=== PATIENT | female | born 1960 | race Caucasian/White ===

== ENCOUNTER 2019-01-14 15:43 | Emergency (ER) | payer OTHER ==
[~2019-01-14] VITALS: Ht 162.5 cm; Wt 79.8 kg
[~2019-01-14 15:43] MED LIST: ACYCLOVIR800 MG PO; ANAPROX DS550 MG PO; ATIVAN0.5 MG PO; DARVOCET N 1001 TAB PO; DIFLUCAN100 MG PO; FLAGYL500 MG PO; MONISTAT 3200 MG VG; TRAMADOL HCL50 MG PO
[2019-01-14 16:27] VITALS: BP 125/78
[2019-01-14] MEDS ORDERED: ZOFRAN4 MG PO (17:48)
[2019-01-14] MEDS ORDERED: MOTION RELIEF25 M2 PO (17:48)
== END 2019-01-14 17:55 | disposition home or self-care (01) ==
LOC: ED 15:43
DX: H83.09 Labyrinthitis, unspecified ear (principal); R51 Headache; R42 Dizziness and giddiness; R11.2 Nausea with vomiting, unspecified; Z86.73 Personal history of transient ischemic attack (TIA), and cerebral infarction without residual deficits

== ENCOUNTER → 2019-03-02 | Outpatient (CLI) | payer OTHER ==
[~2019-03-02] MED LIST changes: +MOTION RELIEF25 M2 PO; +ZOFRAN4 MG PO
--- NOTE | ~2019-03-02 | EKG ---
[place], [place] ELECTROCARDIOGRAM REPORT NAME: JOSIAH NOLAND UNIT #: [id number] ROOM: DOCTOR: EPIPHANY DRAFT REPORT BIRTHDATE: [birth year] [facility] Test Date: 2019-03-02 Test Time: 11:13:54 Pat Name: JOSIAH NOLAND Department: Room: OP Gender: F Assessment Counselor: : 1960 Requested By: TERRENCE TELLEZ Order Number: [id number] Reading MD: Colton Novoa MD Measurements Intervals [place] Rate: 96 P: 64 [place]: 152 QRS: 48 QRSD: 82 T: 3 QT: 357 QTc: 452 Interpretive Statements Sinus rhythm Electronically Signed On 03-03-2019 5:58:44 PDT by Colton Novoa MD CM:EKGRPT:ELECTROCARDIOGRAM REPORT [id number] TERRENCE TELLEZ EPIPHANY DRAFT REPORT TERRENCE TELLEZ
== END | disposition home or self-care (01) ==
LOC: LAB 10:31
DX: Z12.39 Encounter for other screening for malignant neoplasm of breast (principal); E03.9 Hypothyroidism, unspecified; I10 Essential (primary) hypertension; F32.9 Major depressive disorder, single episode, unspecified; K21.9 Gastro-esophageal reflux disease without esophagitis; G43.909 Migraine, unspecified, not intractable, without status migrainosus

== ENCOUNTER → 2019-03-29 | Outpatient (CLI) | payer OTHER | END | disposition home or self-care (01) | LOC: LAB 10:20 → EDSTATUS 03-30 15:11 → LAB 03-30 15:24 | DX: Z03.89 Encounter for observation for other suspected diseases and conditions ruled out (principal); Z83.79 Family history of other diseases of the digestive system ==

== ENCOUNTER → 2019-05-03 | Outpatient (CLI) | payer OTHER ==
[~2019-05-03] MED LIST changes: +CYCLOBENZAPRINE5 M3 PO
== END | disposition home or self-care (01) ==
LOC: RAD 11:00
DX: Z01.419 Encounter for gynecological examination (general) (routine) without abnormal findings (principal); M51.36 Other intervertebral disc degeneration, lumbar region; M81.0 Age-related osteoporosis without current pathological fracture; N95.9 Unspecified menopausal and perimenopausal disorder; I10 Essential (primary) hypertension; Z78.0 Asymptomatic menopausal state

== ENCOUNTER 2019-05-14 16:59 | Emergency (ER) | payer OTHER ==
[~2019-05-14] VITALS: Ht 157.4 cm; Wt 80.7 kg
[2019-05-14 16:59] VITALS: BP 147/88
[~2019-05-14 16:59] MED LIST changes: -CYCLOBENZAPRINE5 M3 PO
[2019-05-14] MEDS ORDERED: CYCLOBENZAPRINE5 M3 PO (19:48)
== END 2019-05-14 19:42 | disposition home or self-care (01) ==
LOC: ED 16:59
DX: S16.1XXA Strain of muscle, fascia and tendon at neck level, initial encounter (principal); R42 Dizziness and giddiness; R51 Headache; R07.89 Other chest pain; Z90.49 Acquired absence of other specified parts of digestive tract; V43.52XA Car driver injured in collision with other type car in traffic accident, initial encounter; Y93.I9 Activity, other involving external motion; Y92.488 Other paved roadways as the place of occurrence of the external cause; Y99.8 Other external cause status

== ENCOUNTER → 2020-03-27 | Outpatient (CLI) | payer OTHER ==
[~2020-03-27] MED LIST changes: +CYCLOBENZAPRINE5 M3 PO
[2020-03-27 07:30] LABS: HEMATOCRIT 37.5 % (37.0-47.0); MEAN CELL VOLUME 94.5 fl (81.0-99.0); MEAN CORPUSCULAR HGB 31.2 pg (27.0-31.0); MEAN CORPUSCULAR HGB CONC 33.1 g/dl (33.0-37.0); MEAN PLATELET VOLUME 10.4 fl (9.6-12.3); RED BLOOD COUNT 3.97 10*6/uL (4.10-5.10); RED CELL DISTRI WIDTH 12.3 % (0-14.5)
[2020-03-27 08:01] LABS: ALBUMIN 3.1 gm/dl (3.1-4.5); ALKALINE PHOSPHATASE 84 U/L (45-117); BUN 10 mg/dl (7-24); CHLORIDE 109 mmol/L (98-107); CHOLESTEROL 164 mg/dL (<200); CREATININE 0.91 mg/dL (0.55-1.02); HDL CHOLESTEROL 47 mg/dl (40-60); LDL CHOLESTEROL 99 mg/dL (9-159); POTASSIUM 4.1 mmol/L (3.5-5.1); SGOT/AST 29 IU/L (3-35); SGPT/ALT 38 U/L (12-78); SODIUM 140 mmol/L (136-145); TOTAL PROTEIN 7.4 gm/dL (6.4-8.2); TRIGLYCERIDES 89 mg/dl (<150); VLDL CHOLESTEROL 18 mg/dL (6-40)
== END | disposition home or self-care (01) ==
LOC: LAB 07:00
PROVIDERS: Internal Medicine
DX: I10 Essential (primary) hypertension (principal); E03.9 Hypothyroidism, unspecified; E78.2 Mixed hyperlipidemia; Z86.73 Personal history of transient ischemic attack (TIA), and cerebral infarction without residual deficits

== ENCOUNTER → 2021-01-24 | Outpatient (CLI) | payer OTHER ==
[2021-01-24 10:05] LABS: BASO # 0.1 10*3/uL (0.0-0.1); BASO % 0.7 % (0.0-1.0); EOS # 0.3 10*3/uL (0.0-0.4); HEMATOCRIT 41.3 % (37.0-47.0); LYMPH # 2.5 10*3/uL (1.3-4.4); LYMPH % 35.9 % (27.0-41.0); MEAN CELL VOLUME 97.9 fl (81.0-99.0); MEAN CORPUSCULAR HGB 31.8 pg (27.0-31.0); MEAN CORPUSCULAR HGB CONC 32.4 g/dl (33.0-37.0); MEAN PLATELET VOLUME 10.4 fl (9.6-12.3); MONO # 0.9 10*3/uL (0.1-1.0); NEUT # 3.1 10*3/uL (2.3-7.9); NEUT % 45.3 % (47.0-73.0); PLATELET COUNT AUTOMATED 321 10*3/uL (130-400); RED BLOOD COUNT 4.22 10*6/uL (4.10-5.10); RED CELL DISTRI WIDTH 12.3 % (0-14.5); WHITE BLOOD COUNT 6.8 10*3/uL (4.8-10.8)
[2021-01-24 10:40] LABS: ALBUMIN 3.3 gm/dl (3.1-4.5); ALKALINE PHOSPHATASE 105 U/L (45-117); BUN 9 mg/dl (7-24); CHLORIDE 107 mmol/L (98-107); CHOLESTEROL 213 mg/dL (<200); CREATININE 0.94 mg/dL (0.55-1.02); LDL CHOLESTEROL 132 mg/dL (9-159); POTASSIUM 3.9 mmol/L (3.5-5.1); SGOT/AST 62 IU/L (3-35); SGPT/ALT 77 U/L (12-78); SODIUM 135 mmol/L (136-145); TOTAL PROTEIN 8.4 gm/dL (6.4-8.2); TRIGLYCERIDES 133 mg/dl (<150)
== END | disposition home or self-care (01) ==
LOC: LAB 09:30
PROVIDERS: Physical Therapist; ATTEND Family Medicine
DX: I10 Essential (primary) hypertension (principal); E66.09 Other obesity due to excess calories; Z86.39 Personal history of other endocrine, nutritional and metabolic disease

== ENCOUNTER → 2021-09-17 | Outpatient (CLI) | payer OTHER | END | disposition home or self-care (01) | LOC: MRI 08-31 13:00 | PROVIDERS: ATTEND Psychiatry & Neurology Neurology | DX: G93.5 Compression of brain (principal); R55 Syncope and collapse ==

== ENCOUNTER → 2022-01-18 | Outpatient (CLI) | payer OTHER | END | disposition home or self-care (01) | LOC: US 15:06 | PROVIDERS: ATTEND Nurse Practitioner Women's Health | DX: N85.8 Other specified noninflammatory disorders of uterus (principal); R10.2 Pelvic and perineal pain ==

== ENCOUNTER → 2022-02-26 | Outpatient (CLI) | payer OTHER ==
[2022-02-26 12:03] LABS: BASO % 0.4 % (0.0-1.0); EOS # 0.4 10*3/uL (0.0-0.4); EOS % 4.7 % (1.0-4.0); HEMATOCRIT 39.3 % (37.0-47.0); LYMPH # 2.1 10*3/uL (1.3-4.4); LYMPH % 26.7 % (27.0-41.0); MEAN CELL VOLUME 96.1 fl (81.0-99.0); MEAN CORPUSCULAR HGB CONC 33.3 g/dl (33.0-37.0); MEAN PLATELET VOLUME 10.7 fl (9.6-12.3); MONO # 0.7 10*3/uL (0.1-1.0); MONO % 9.3 % (3.0-9.0); NEUT # 4.7 10*3/uL (2.3-7.9); NEUT % 58.6 % (47.0-73.0); PLATELET COUNT AUTOMATED 269 10*3/uL (130-400); RED BLOOD COUNT 4.09 10*6/uL (4.10-5.10); RED CELL DISTRI WIDTH 12.3 % (0-14.5); WHITE BLOOD COUNT 7.9 10*3/uL (4.8-10.8)
[2022-02-26 13:39] LABS: BUN 13 mg/dl (7-24); CHLORIDE 113 mmol/L (98-107); CHOLESTEROL 172 mg/dL (<200); CREATININE 0.89 mg/dL (0.55-1.02); LDL CHOLESTEROL 106 mg/dL (9-159); POTASSIUM 4.1 mmol/L (3.5-5.1); SGOT/AST 36 IU/L (3-35); SGPT/ALT 41 U/L (12-78); SODIUM 142 mmol/L (136-145); TRIGLYCERIDES 84 mg/dl (<150)
[2022-02-26 13:46] LABS: ALKALINE PHOSPHATASE 94 U/L (45-117); TOTAL PROTEIN 7.6 gm/dL (6.4-8.2)
[2022-02-26 14:26] LABS: FREE T4 1.18 ng/dl (0.76-1.46)
[2022-02-27 08:07] LABS: CANCER ANTIGEN (CA) 125 8.9 U/mL (0.0-38.1)
== END | disposition home or self-care (01) ==
LOC: LAB 11:41
PROVIDERS: ATTEND Internal Medicine
DX: I10 Essential (primary) hypertension (principal); E03.9 Hypothyroidism, unspecified; R10.9 Unspecified abdominal pain

== ENCOUNTER → 2022-03-05 | Outpatient (CLI) | payer OTHER | END | disposition home or self-care (01) | LOC: CT 02:51 | PROVIDERS: ATTEND Internal Medicine | DX: N20.0 Calculus of kidney (principal); K76.0 Fatty (change of) liver, not elsewhere classified ==

== ENCOUNTER 2022-03-26 23:21 | Emergency (ER) | payer OTHER ==
[~2022-03-26] VITALS: Ht 165.1 cm; Wt 77.1 kg
[2022-03-26] MEDS ORDERED: ACYCLOVIR400 MG PO (23:39)
[2022-03-26] MEDS ORDERED: LEVOTHYROXINE100 MC1 PO (23:39)
[2022-03-26] MEDS ORDERED: PANTOPRAZOLE SO40 MG PO (23:39)
[2022-03-26] MEDS ORDERED: DULOXETINE HCL20 MG PO (23:39)
[2022-03-26] MEDS ORDERED: LINZESS290 MC1 PO (23:39)
[2022-03-26] MEDS ORDERED: VENT7GM INH (23:40)
[2022-03-26] MEDS ORDERED: Meclizine25 MG PO (23:40)
[2022-03-26] MEDS ORDERED: MONTELUKAST SOD10 MG PO (23:40)
[2022-03-26] MEDS ORDERED: METOPROLOL TART50 M1 PO (23:40)
[2022-03-26] MEDS ORDERED: TOPIRAMATE100 M2 PO (23:40)
[2022-03-26] MEDS ORDERED: ASPIRIN CHEWABL81 MG PO (23:41)
[2022-03-27 00:18] LABS: BASO % 0.5 % (0.0-1.0); EOS # 0.1 10*3/uL (0.0-0.4); EOS % 2.2 % (1.0-4.0); HEMATOCRIT 40.4 % (37.0-47.0); LYMPH # 1.8 10*3/uL (1.3-4.4); LYMPH % 29.2 % (27.0-41.0); MEAN CELL VOLUME 91.4 fl (81.0-99.0); MEAN CORPUSCULAR HGB 31.4 pg (27.0-31.0); MEAN CORPUSCULAR HGB CONC 34.4 g/dl (33.0-37.0); MEAN PLATELET VOLUME 10.7 fl (9.6-12.3); MONO # 0.9 10*3/uL (0.1-1.0); MONO % 14.8 % (3.0-9.0); NEUT # 3.3 10*3/uL (2.3-7.9); NEUT % 53.1 % (47.0-73.0); PLATELET COUNT AUTOMATED 226 10*3/uL (130-400); RED BLOOD COUNT 4.42 10*6/uL (4.10-5.10); RED CELL DISTRI WIDTH 12.6 % (0-14.5); WHITE BLOOD COUNT 6.2 10*3/uL (4.8-10.8)
[2022-03-27 00:39] LABS: ALKALINE PHOSPHATASE 97 U/L (45-117); BUN 13 mg/dl (7-24); CHLORIDE 111 mmol/L (98-107); CREATININE 0.93 mg/dL (0.55-1.02); POTASSIUM 3.6 mmol/L (3.5-5.1); SGOT/AST 39 IU/L (3-35); SGPT/ALT 42 U/L (12-78); SODIUM 141 mmol/L (136-145); TOTAL PROTEIN 7.5 gm/dL (6.4-8.2)
[2022-03-27 03:30] VITALS: BP 132/74
== END 2022-03-27 05:44 | disposition left against medical advice (07) ==
LOC: ED 23:21
PROVIDERS: Emergency Medicine
DX: U07.1 COVID-19 (principal); R42 Dizziness and giddiness; R55 Syncope and collapse; I10 Essential (primary) hypertension; E03.9 Hypothyroidism, unspecified; K21.9 Gastro-esophageal reflux disease without esophagitis; Z88.8 Allergy status to other drugs, medicaments and biological substances; Z79.899 Other long term (current) drug therapy; Z79.82 Long term (current) use of aspirin; Z90.49 Acquired absence of other specified parts of digestive tract; Z98.890 Other specified postprocedural states

== ENCOUNTER 2022-04-08 09:25 | Emergency (ER) | payer OTHER ==
[~2022-04-08 09:25] MED LIST changes: +ACYCLOVIR400 MG PO; +ASPIRIN CHEWABL81 MG PO; +DULOXETINE HCL20 MG PO; +LEVOTHYROXINE100 MC1 PO; +LINZESS290 MC1 PO; +METOPROLOL TART50 M1 PO; +MONTELUKAST SOD10 MG PO; +Meclizine25 MG PO; +PANTOPRAZOLE SO40 MG PO; +TOPIRAMATE100 M2 PO; +VENT7GM INH
[2022-04-08 09:43] VITALS: BP 133/89
[2022-04-08 10:03] LABS: BASO # 0.1 10*3/uL (0.0-0.1); BASO % 0.6 % (0.0-1.0); EOS # 0.4 10*3/uL (0.0-0.4); EOS % 4.5 % (1.0-4.0); HEMATOCRIT 38.5 % (37.0-47.0); LYMPH # 2.4 10*3/uL (1.3-4.4); LYMPH % 30.8 % (27.0-41.0); MEAN CELL VOLUME 94.4 fl (81.0-99.0); MEAN CORPUSCULAR HGB 31.9 pg (27.0-31.0); MEAN CORPUSCULAR HGB CONC 33.8 g/dl (33.0-37.0); MEAN PLATELET VOLUME 10.5 fl (9.6-12.3); MONO # 0.9 10*3/uL (0.1-1.0); MONO % 11.6 % (3.0-9.0); NEUT % 52.1 % (47.0-73.0); PLATELET COUNT AUTOMATED 303 10*3/uL (130-400); RED BLOOD COUNT 4.08 10*6/uL (4.10-5.10); RED CELL DISTRI WIDTH 12.6 % (0-14.5); WHITE BLOOD COUNT 7.7 10*3/uL (4.8-10.8)
[2022-04-08 10:22] LABS: ACT PARTIAL THROMBO TIME 27.2 SECONDS (20.0-32.1); ALKALINE PHOSPHATASE 92 U/L (45-117); BUN 17 mg/dl (7-24); CHLORIDE 112 mmol/L (98-107); CREATININE 0.86 mg/dL (0.55-1.02); SGOT/AST 39 IU/L (3-35); SGPT/ALT 42 U/L (12-78); SODIUM 140 mmol/L (136-145); TOTAL PROTEIN 7.8 gm/dL (6.4-8.2)
== END 2022-04-08 11:30 | disposition home or self-care (01) ==
LOC: ED 09:25
PROVIDERS: Emergency Medicine
DX: U07.1 COVID-19 (principal); Z88.8 Allergy status to other drugs, medicaments and biological substances; Z79.899 Other long term (current) drug therapy; Z79.82 Long term (current) use of aspirin; Z90.49 Acquired absence of other specified parts of digestive tract; Z98.51 Tubal ligation status; Z98.890 Other specified postprocedural states

== ENCOUNTER → 2022-04-11 | Outpatient (CLI) | payer OTHER | END | disposition home or self-care (01) | LOC: MAMMO 03-27 10:30 | PROVIDERS: ATTEND Nurse Practitioner Primary Care | DX: Z12.31 Encounter for screening mammogram for malignant neoplasm of breast (principal) ==

== ENCOUNTER → 2022-05-24 | Outpatient (CLI) | payer OTHER ==
[2022-05-25 02:06] LABS: TOTAL PROTEIN, SERUM 7.2 g/dL (6.0-8.5)
[2022-05-27 16:07] LABS: A/G RATIO 0.9 (0.7-1.7); ALBUMIN 3.4 g/dL (2.9-4.4); ALPHA-1-GLOBULIN 0.3 g/dL (0.0-0.4); ALPHA-2-GLOBULIN 0.9 g/dL (0.4-1.0); BETA GLOBULIN 1.1 g/dL (0.7-1.3); GAMMA GLOBULIN 1.6 g/dL (0.4-1.8); GLOBULIN, TOTAL 3.8 g/dL (2.2-3.9); M-SPIKE Not Observed g/dL (Not Observed)
== END | disposition home or self-care (01) ==
LOC: LAB 08:28
PROVIDERS: ATTEND Psychiatry & Neurology Neurology
DX: R44.9 Unspecified symptoms and signs involving general sensations and perceptions (principal); R29.2 Abnormal reflex

== ENCOUNTER → 2022-05-31 | Outpatient (CLI) | payer OTHER | END | disposition home or self-care (01) | LOC: RAD 00:14 | PROVIDERS: ATTEND Internal Medicine | DX: M85.851 Other specified disorders of bone density and structure, right thigh (principal) ==

== ENCOUNTER → 2022-06-05 | Outpatient (CLI) | payer OTHER | END | disposition home or self-care (01) | LOC: CARD 01:41 | PROVIDERS: ATTEND Internal Medicine Cardiovascular Disease | DX: R07.9 Chest pain, unspecified (principal) ==

== ENCOUNTER → 2022-07-01 | Outpatient (CLI) | payer OTHER ==
[2022-07-01 10:16] LABS: CREATININE 0.95 mg/dL (0.55-1.02)
== END | disposition home or self-care (01) ==
LOC: MRI 09:00 → LAB 09:19
PROVIDERS: Radiology Diagnostic Radiology; ATTEND Psychiatry & Neurology Neurology
DX: M47.812 Spondylosis without myelopathy or radiculopathy, cervical region (principal); R55 Syncope and collapse; G35 Multiple sclerosis; M25.78 Osteophyte, vertebrae; M48.02 Spinal stenosis, cervical region

== ENCOUNTER → 2022-08-23 | Outpatient (CLI) | payer OTHER | END | disposition home or self-care (01) | LOC: US 07-04 00:16 | PROVIDERS: ATTEND Nurse Practitioner Women's Health | DX: D25.2 Subserosal leiomyoma of uterus (principal); R10.2 Pelvic and perineal pain ==

== ENCOUNTER → 2022-09-11 | Outpatient (CLI) | payer OTHER | END | disposition home or self-care (01) | LOC: CARD 08-27 00:30 | PROVIDERS: ATTEND Internal Medicine | DX: R55 Syncope and collapse (principal) ==

== ENCOUNTER → 2023-03-18 | Outpatient (CLI) | payer OTHER ==
[2023-03-18 09:21] LABS: BUN 12 mg/dl (9-23)
== END | disposition home or self-care (01) ==
LOC: LAB 08:26
PROVIDERS: ATTEND Physician Assistant Medical
DX: I63.9 Cerebral infarction, unspecified (principal)

== ENCOUNTER → 2023-03-25 | Outpatient (CLI) | payer OTHER | END | disposition home or self-care (01) | LOC: MRI 00:27 | PROVIDERS: ATTEND Physician Assistant Medical | DX: I67.82 Cerebral ischemia (principal); I63.9 Cerebral infarction, unspecified ==

== ENCOUNTER → 2023-08-05 | Outpatient (CLI) | payer OTHER | END | disposition home or self-care (01) | LOC: RAD 07:43 | PROVIDERS: ATTEND Nurse Practitioner Primary Care | DX: K59.00 Constipation, unspecified (principal); Z90.49 Acquired absence of other specified parts of digestive tract ==

== ENCOUNTER → 2023-10-13 | Day surgery (SDC) | payer OTHER ==
[~2023-10-13] VITALS: Ht 157.4 cm; Wt 84.8 kg
[~2023-10-13] MED LIST changes: +ACYCLOVIR 400 MG TAB PO SCH; +ASPIRIN, CHEWABLE 81 MG TAB PO SCH; +Albuterol Sulfate 2.5 MG/3 ML VIAL NEB ONE; +Albuterol Sulfate 2.5 MG/3 ML VIAL NEB SCH; +Duloxetine Hydrochloride 20 MG CAP PO SCH; +LINACLOTIDE 145 MCG CAP PO SCH; +Lactated Ringer's Solution 1,000 ML IV ONE; +Levothyroxine Sodium 100 MCG TAB PO SCH; +Meclizine Hydrochloride 25 MG TAB PO SCH; +Metoprolol Tartrate 50 MG TAB PO SCH; +Midazolam Hydrochloride 2 MG/2 ML VIAL IV ONE; +Montelukast Sodium 10 MG TAB PO SCH; +PROPOFOL 200 MG/20 ML VIAL IV ONE; +Pantoprazole Sodium 40 MG TAB PO SCH; +TOPIRAMATE 100 MG TAB PO SCH
[2023-10-13 07:55] VITALS: BP 144/82
[2023-10-13 10:10] VITALS: BP 139/76
[2023-10-13 10:25] VITALS: BP 148/84
[2023-10-13 10:40] VITALS: BP 134/78
== END | disposition home or self-care (01) ==
LOC: SDC 08-28 10:15
PROVIDERS: ATTEND Surgery
DX: K59.09 Other constipation (principal); R10.9 Unspecified abdominal pain; K64.1 Second degree hemorrhoids; K21.9 Gastro-esophageal reflux disease without esophagitis; K29.50 Unspecified chronic gastritis without bleeding; D13.0 Benign neoplasm of esophagus; I10 Essential (primary) hypertension; G43.909 Migraine, unspecified, not intractable, without status migrainosus; E78.00 Pure hypercholesterolemia, unspecified; J45.909 Unspecified asthma, uncomplicated; F32.A Depression, unspecified; M19.90 Unspecified osteoarthritis, unspecified site; Z90.49 Acquired absence of other specified parts of digestive tract; Z87.891 Personal history of nicotine dependence; Z86.16 Personal history of COVID-19; Z86.73 Personal history of transient ischemic attack (TIA), and cerebral infarction without residual deficits; Z98.890 Other specified postprocedural states; Z88.8 Allergy status to other drugs, medicaments and biological substances; Z83.3 Family history of diabetes mellitus

== ENCOUNTER → 2023-12-12 | Outpatient (CLI) | payer OTHER ==
[~2023-12-12] MED LIST changes: -ACYCLOVIR 400 MG TAB PO SCH; -ASPIRIN, CHEWABLE 81 MG TAB PO SCH; -Albuterol Sulfate 2.5 MG/3 ML VIAL NEB ONE; -Albuterol Sulfate 2.5 MG/3 ML VIAL NEB SCH; -Duloxetine Hydrochloride 20 MG CAP PO SCH; -LINACLOTIDE 145 MCG CAP PO SCH; -Lactated Ringer's Solution 1,000 ML IV ONE; -Levothyroxine Sodium 100 MCG TAB PO SCH; -Meclizine Hydrochloride 25 MG TAB PO SCH; -Metoprolol Tartrate 50 MG TAB PO SCH; -Midazolam Hydrochloride 2 MG/2 ML VIAL IV ONE; -Montelukast Sodium 10 MG TAB PO SCH; -PROPOFOL 200 MG/20 ML VIAL IV ONE; -Pantoprazole Sodium 40 MG TAB PO SCH; -TOPIRAMATE 100 MG TAB PO SCH
[2023-12-12 09:02] LABS: BASO % 0.6 % (0.0-1.0); EOS # 0.4 10*3/uL (0.0-0.4); EOS % 6.1 % (1.0-4.0); HEMATOCRIT 41.9 % (37.0-47.0); LYMPH # 2.1 10*3/uL (1.3-4.4); LYMPH % 31.6 % (27.0-41.0); MEAN CELL VOLUME 97.7 fl (81.0-99.0); MEAN CORPUSCULAR HGB 31.7 pg (27.0-31.0); MEAN CORPUSCULAR HGB CONC 32.5 g/dl (33.0-37.0); MEAN PLATELET VOLUME 10.5 fl (9.6-12.3); MONO # 0.7 10*3/uL (0.1-1.0); MONO % 10.9 % (3.0-9.0); NEUT # 3.3 10*3/uL (2.3-7.9); NEUT % 50.5 % (47.0-73.0); PLATELET COUNT AUTOMATED 283 10*3/uL (130-400); RED BLOOD COUNT 4.29 10*6/uL (4.10-5.10); RED CELL DISTRI WIDTH 12.5 % (0-14.5); WHITE BLOOD COUNT 6.6 10*3/uL (4.8-10.8)
[2023-12-12 09:34] LABS: ALKALINE PHOSPHATASE 91 U/L (46-116); BUN 8 mg/dl (9-23); CHLORIDE 105 mmol/L (98-107); POTASSIUM 3.9 mmol/L (3.4-5.1); SGPT/ALT 15 U/L (5-49); TOTAL PROTEIN 8.1 gm/dL (6.0-8.0)
[2023-12-12 10:09] LABS: FREE T4 1.57 ng/dl (0.89-1.76)
[2023-12-13 15:07] LABS: t-TRANSGLUTAMINASE (tTG) IGA <2 U/mL (0-3)
== END | disposition home or self-care (01) ==
LOC: LAB 08:41
PROVIDERS: ATTEND Nurse Practitioner Primary Care
DX: I10 Essential (primary) hypertension (principal); E55.9 Vitamin D deficiency, unspecified; R10.9 Unspecified abdominal pain; R14.0 Abdominal distension (gaseous); E03.9 Hypothyroidism, unspecified

== ENCOUNTER → 2024-06-25 | Outpatient (CLI) | payer OTHER ==
[2024-06-25 07:52] LABS: BASO % 0.5 % (0.0-1.0); EOS # 0.3 10*3/uL (0.0-0.4); EOS % 4.7 % (1.0-4.0); HEMATOCRIT 38.8 % (37.0-47.0); LYMPH # 2.3 10*3/uL (1.3-4.4); LYMPH % 34.3 % (27.0-41.0); MEAN CELL VOLUME 97.7 fl (81.0-99.0); MEAN CORPUSCULAR HGB 31.7 pg (27.0-31.0); MEAN CORPUSCULAR HGB CONC 32.5 g/dl (33.0-37.0); MEAN PLATELET VOLUME 10.3 fl (9.6-12.3); MONO # 0.9 10*3/uL (0.1-1.0); MONO % 12.8 % (3.0-9.0); NEUT # 3.2 10*3/uL (2.3-7.9); NEUT % 47.5 % (47.0-73.0); PLATELET COUNT AUTOMATED 275 10*3/uL (130-400); RED BLOOD COUNT 3.97 10*6/uL (4.10-5.10); RED CELL DISTRI WIDTH 12.2 % (0-14.5); WHITE BLOOD COUNT 6.6 10*3/uL (4.8-10.8)
[2024-06-25 08:11] LABS: ALKALINE PHOSPHATASE 87 U/L (46-116); BUN 12 mg/dl (9-23); CHLORIDE 105 mmol/L (98-107); CHOLESTEROL 210 mg/dL (<200); LDL CHOLESTEROL 136 mg/dL (9-159); POTASSIUM 4.6 mmol/L (3.4-5.1); SGPT/ALT 28 U/L (5-49); TOTAL PROTEIN 7.9 gm/dL (6.0-8.0); TRIGLYCERIDES 101 mg/dl (<150)
[2024-06-25 08:36] LABS: VITAMIN D, 25-HYDROXY 32.9 ng/mL (30-100)
[2024-06-26 15:07] LABS: t-TRANSGLUTAMINASE (tTG) IGA <2 U/mL (0-3)
== END | disposition home or self-care (01) ==
LOC: LAB 07:35
PROVIDERS: ATTEND Nurse Practitioner Primary Care
DX: E55.9 Vitamin D deficiency, unspecified (principal); E03.9 Hypothyroidism, unspecified; I10 Essential (primary) hypertension; R10.9 Unspecified abdominal pain; R14.0 Abdominal distension (gaseous)

== ENCOUNTER → 2024-09-29 | Outpatient (CLI) | payer OTHER ==
[2024-09-29 09:55] LABS: ALKALINE PHOSPHATASE 103 U/L (46-116); BUN 9 mg/dl (9-23); CHLORIDE 104 mmol/L (98-107); CHOLESTEROL 196 mg/dL (<200); LDL CHOLESTEROL 127 mg/dL (9-159); POTASSIUM 4.5 mmol/L (3.4-5.1); SGPT/ALT 21 U/L (5-49); TOTAL PROTEIN 8.2 gm/dL (6.0-8.0); TRIGLYCERIDES 103 mg/dl (<150)
== END | disposition home or self-care (01) ==
LOC: LAB 08:47
PROVIDERS: ATTEND Nurse Practitioner Primary Care
DX: E78.2 Mixed hyperlipidemia (principal)

== ENCOUNTER → 2024-10-28 | Outpatient (CLI) | payer OTHER | END | disposition home or self-care (01) | LOC: MAMMO 10:34 | PROVIDERS: ATTEND Nurse Practitioner Primary Care | DX: Z12.31 Encounter for screening mammogram for malignant neoplasm of breast (principal) ==

== ENCOUNTER 2025-02-12 08:13 | Emergency (ER) | payer OTHER ==
[~2025-02-12] VITALS: Ht 160 cm; Wt 82.6 kg
[2025-02-12 08:38] VITALS: BP 150/84
[2025-02-12] MEDS ORDERED: IOHEXOL 300 MG/ML 100 ML VIAL IV ONE (09:00)
[2025-02-12 09:06] LABS: BASO # 0.1 10*3/uL (0.0-0.1); BASO % 0.5 % (0.0-1.0); EOS # 0.2 10*3/uL (0.0-0.4); EOS % 2.1 % (1.0-4.0); MEAN CELL VOLUME 96.6 fl (81.0-99.0); MEAN CORPUSCULAR HGB 31.6 pg (27.0-31.0); MEAN CORPUSCULAR HGB CONC 32.8 g/dl (33.0-37.0); MEAN PLATELET VOLUME 10.6 fl (9.6-12.3); MONO # 0.9 10*3/uL (0.1-1.0); MONO % 8.9 % (3.0-9.0); NEUT % 68.7 % (47.0-73.0); PLATELET COUNT AUTOMATED 278 10*3/uL (130-400); RED BLOOD COUNT 4.14 10*6/uL (4.10-5.10); RED CELL DISTRI WIDTH 12.1 % (0-14.5); WHITE BLOOD COUNT 10.2 10*3/uL (4.8-10.8)
[2025-02-12 09:27] LABS: ALKALINE PHOSPHATASE 102 U/L (46-116); BUN 9 mg/dl (9-23); CHLORIDE 103 mmol/L (98-107); POTASSIUM 4.4 mmol/L (3.4-5.1); SGPT/ALT 12 U/L (5-49)
[2025-02-12] MEDS ORDERED: Dexamethasone Sodium Phospha 20 MG/5 ML VIAL IM ONE (10:00)
[2025-02-12] MEDS ORDERED: MEDROL DOSEPAK4 MG PO (10:05)
== END 2025-02-12 10:15 | disposition home or self-care (01) ==
LOC: ED 08:13
PROVIDERS: Internal Medicine
DX: M25.78 Osteophyte, vertebrae (principal); I10 Essential (primary) hypertension; J45.909 Unspecified asthma, uncomplicated; F32.A Depression, unspecified; Z79.82 Long term (current) use of aspirin; Z79.899 Other long term (current) drug therapy; Z86.73 Personal history of transient ischemic attack (TIA), and cerebral infarction without residual deficits; Z88.8 Allergy status to other drugs, medicaments and biological substances; Z90.49 Acquired absence of other specified parts of digestive tract; Z98.51 Tubal ligation status; Z98.890 Other specified postprocedural states

== ENCOUNTER → 2025-04-01 | Outpatient (CLI) | payer OTHER ==
[~2025-04-01] MED LIST changes: +MEDROL DOSEPAK4 MG PO
[2025-04-01 10:24] LABS: LDL CHOLESTEROL 112.0 mg/dL (9-159)
[2025-04-01 10:49] LABS: FREE T4 1.32 ng/dl (0.89-1.76)
[2025-04-01 10:51] LABS: VITAMIN D, 25-HYDROXY 44.3 ng/mL (30-100)
== END | disposition home or self-care (01) ==
LOC: LAB 09:04
PROVIDERS: ATTEND Nurse Practitioner Primary Care
DX: E78.2 Mixed hyperlipidemia (principal); E55.9 Vitamin D deficiency, unspecified; E03.9 Hypothyroidism, unspecified; R73.9 Hyperglycemia, unspecified